=== PATIENT | female | born 1980 | race Caucasian/White ===

== ENCOUNTER → 2024-08-31 10:27 | Outpatient (REF) | payer BC, SELFPAY | LOC: HWRAD 10:27 | PROVIDERS: ATTENDING PHYSICIAN Internal Medicine Rheumatology; FAMILY PHYSICIAN Nurse Practitioner Adult Health; REFERRING PHYSICIAN Physician Assistant Medical | DX: M54.16 Radiculopathy, lumbar region (principal); M25.559 Pain in unspecified hip | CPT/HCPCS: 72100; 73523 ==

== ENCOUNTER → 2025-06-01 13:40 | Outpatient (REF) | payer BC, SELFPAY | LOC: HWRAD 13:40 | PROVIDERS: ATTENDING PHYSICIAN Nurse Practitioner Adult Health | DX: R10.20 Pelvic and perineal pain unspecified side (principal); M54.50 Low back pain, unspecified; M53.3 Sacrococcygeal disorders, not elsewhere classified; M25.551 Pain in right hip; M25.552 Pain in left hip | CPT/HCPCS: 72110; 73523; 76830; 76856 ==

== ENCOUNTER → 2025-06-05 08:01 | Outpatient (REF) | payer BC, SELFPAY | LOC: RAD 08:01 | PROVIDERS: ATTENDING PHYSICIAN Nurse Practitioner Adult Health | DX: I77.811 Abdominal aortic ectasia (principal) | CPT/HCPCS: 76770 ==